=== PATIENT | female | born 1985 | race Caucasian/White ===

== ENCOUNTER 2017-05-02 17:21 | Emergency (ER) | payer OTHER ==
[2017-05-02 17:33] VITALS: BP 121/76
[2017-05-02 17:55] LABS: Basophils % (Auto) 0.2 % (0.0-1.8); Eosinophils % (Auto) 0.4 % (0.0-4.3); Hemoglobin 13.2 gm/dl (10.1-14.3); Mean Corpuscular HGB Conc 34 % (30-34); Mean Corpuscular Hemoglobin 29 pg (28-32); Mean Corpuscular Volume 87 fl (79-97); Platelet Count 334 K/mm3 (140-440); Red Blood Count 4.47 M/mm3 (3.65-5.03); Red Cell Distribution Width 13.4 % (13.2-15.2); White Blood Count 13.4 K/mm3 (4.5-11.0)
[2017-05-02 18:18] LABS: Alanine Aminotransferase 115 units/L (7-56); Albumin 4.8 g/dL (3.9-5); Albumin/Globulin Ratio 1.5 %; Alkaline Phosphatase 150 units/L (35-129); Anion Gap 21 mmol/L; BUN/Creatinine Ratio 22; Blood Urea Nitrogen 11 mg/dL (7-17); Calcium 9.4 mg/dL (8.4-10.2); Carbon Dioxide 25 mmol/L (22-30); Chloride 98.7 mmol/L (98-107); Glucose 120 mg/dL (65-100); Lipase 63 units/L (13-60); Potassium 4.7 mmol/L (3.6-5.0); Sodium 140 mmol/L (137-145)
[2017-05-02 20:13] LABS: Bilirubin,Urine NEG (Negative); Blood,Urine MOD (Negative); Ketones,Urine NEG (Negative); Leukocyte Esterase,Urine NEG (Negative); Mucus,Urine FEW /HPF; Nitrite,Urine NEG (Negative)
[2017-05-02] MEDS ORDERED: ZOFRAN ODT ONE (21:42)
[2017-05-02] MEDS ORDERED: DUONEB *Not for PRN Use IH ONE (22:17)
[2017-05-02] MEDS ORDERED: DELTASONE ONE (22:17)
--- NOTE | 2017-05-03 02:07 | ED Elopement Review ---
ED Pt Elopement review - Results review Lab results: Laboratory Tests 05/02/17 05/02/17 05/02/17 17:36 17:36 19:35 WBC 13.4 H RBC 4.47 Hgb 13.2 Hct 39.0 MCV 87 MCH 29 MCHC 34 RDW 13.4 Plt Count 334 Lymph % (Auto) 13.2 L [place] % (Auto) 5.4 Eos % (Auto) 0.4 Baso % (Auto) 0.2 Lymph # 1.8 [place] # 0.7 Eos # 0.1 Baso # 0.0 Seg Neutrophils % 80.8 H Seg Neutrophils # 10.8 H Sodium 140 Potassium 4.7 Chloride 98.7 Carbon Dioxide 25 Anion Gap 21 BUN 11 Creatinine 0.5 L Estimated GFR > 60 BUN/Creatinine Ratio 22 Glucose 120 H Calcium 9.4 Total Bilirubin 0.60 AST 165 H ALT 115 H Alkaline Phosphatase 150 H Total Protein 8.0 Albumin 4.8 Albumin/Globulin Ratio 1.5 Lipase 63 H Urine Color Yellow Urine Turbidity Clear Urine pH 7.0 Ur Specific [place] 1.023 Urine Protein 30 mg/dl Urine Glucose (UA) Neg Urine Ketones Neg Urine Blood Mod Urine Nitrite Neg Urine Bilirubin Neg Urine Urobilinogen 2.0 Ur Leukocyte Esterase Neg Urine WBC (Auto) 2.0 Urine RBC (Auto) 6.0 U Epithel Cells (Auto) 1.0 Urine Mucus Few - Call Back decision Pt Call Back Decision: Call pt to return to ED DOT (triage nurse Ling brought to my attention that patient had abnormal labs and came into the ED with abdominal pain. I attempted to find patient in the waiting room but patient was not there. At this time patient has eloped from the ED. I called the listed phone #[phone] as listed in registration sign in sheet. I advised patient on message to return to the ED as soon as possible as she has abnormal blood work. I left a message in both [place] and [place] at the voicemail on listed phone number.)
== END 2017-05-02 19:35 | disposition left against medical advice (07) ==
LOC: ED 17:21
DX: J11.1 Influenza due to unidentified influenza virus with other respiratory manifestations (principal); Z53.21 Procedure and treatment not carried out due to patient leaving prior to being seen by health care provider
CPT/HCPCS: 36415; 80053; 81001; 83690; 85025; 87116; 87430; J7512; Q0162